=== PATIENT | male | born 1960 | race Caucasian/White ===

== ENCOUNTER 2020-05-18 09:58 | Outpatient (CLI) | payer OTHER, SELFPAY ==
--- NOTE | 2020-05-21 12:59 | WPDHOLTEREM ---
Holter/Event Monitor Holter/Event Monitor Date of procedure: 05/18/20 Procedure Type: 24 hour holter monitor Indications: Ventricular tachycardia Conclusion: 1. 24 hour holter monitor on 05/18/20. 2. Underlying rhythm is sinus rhythm. HR range 54-97 bpm; average HR 77 bpm. 3. There are 25 premature supraventricular complexes and 3 supraventricular couplets. No supraventricular tachycardia. 4. There are 7 premature ventricular complexes. No ventricular tachycardia. 5. No sinoatrial or atrioventricular blocks. No significant pauses greater than 2 seconds. 6. No symptoms available for correlation.
== END 2020-05-18 09:59 | disposition home or self-care (01) ==
PROVIDERS: PCP Family Medicine; Visit Provider Family Medicine
DX: I47.2 Ventricular tachycardia (principal)
CPT/HCPCS: 93225; 93226